=== PATIENT | female | born 2000 | race Hispanic/Latino ===

== ENCOUNTER 2022-09-17 17:11 | Emergency (ER) | payer SELFPAY ==
[~2022-09-17 17:11] MED LIST: Iopamidol 370 76% 100 ML VIAL ONE
[2022-09-17 17:55] LABS: Bilirubin Negative (Negative); Blood, Urine Small (Negative); Glucose, Urine (Dipstick) Negative (Negative); Ketone, Urine Negative (Negative); Leukocyte Large (Negative); Nitrite Negative (Negative); Protein, Urine (Dipstick) Negative (Neg-Trace); Urobilinogen 0.2 mg/dL (Less than 2)
[2022-09-17 17:57] LABS: Clarity Hazy (Clear)
[2022-09-17 18:00] LABS: Pregnancy Test - Urine (BHCG) Negative (Negative); Pregu Control Background? CLEAR/WHITE (CLR/WHITE); Pregu Control Bar Appear? YES (CONTROL BAR)
[2022-09-17] MEDS ORDERED: Ondansetron PF 4 MG/2 ML Vial ONE (18:03)
[2022-09-17] MEDS ORDERED: Sodium Chloride 0.9% 1,000 ML ONE (18:03)
[2022-09-17] MEDS ORDERED: Ketorolac Tromethamine 30 MG/ML VIAL ONE (18:04)
[2022-09-17 18:06] LABS: #Basophils 0.1 thou/uL (0.0-0.2); #Lymphocytes 1.5 thou/uL (1.20-3.40); #Monocytes 0.4 thou/uL (0.11-0.59); #Neutrophils 8.7 thou/uL (1.40-6.50); %Basophils 0.7 % (0.0-1.0); %Eosinophils 0.3 % (0.0-10.0); %Lymphocytes 13.8 % (21.0-51.0); %Monocytes 3.4 % (0.0-10.0); %Neutrophils 81.8 % (42.0-75.0); Hemoglobin 10.9 g/dL (12.0-16.0); Mean Corpuscular HGB CONC 31.1 g/dL (32.0-36.0); Mean Corpuscular Hemoglobin 26.1 pg (27.0-31.0); Mean Platelet Volume 8.4 fL (7.4-10.4); Platelet Count 284 10x3/uL (130-400); RBC Distribution Width 14.8 % (11.5-14.5); Red Blood Cell (RBC) Count 4.17 mill/uL (4.20-5.40); White Blood Cell (WBC) Count 10.7 10x3/uL (4.8-10.8)
[2022-09-17 18:16] LABS: Bacteria/HPF Rare-Few HPF (None Seen); Squamous Epithelial 0-3 HPF (0-3); WBC/HPF 21-50 HPF (0-3)
[2022-09-17 18:19] LABS: ALT (SGPT) 16 U/L (8-55); AST (SGOT) 14 U/L (5-34); Albumin 4.3 g/dL (3.5-5.0); Alkaline Phosphatase 69 U/L (40-110); Anion Gap 13 mmol/L (10-20); BUN (Urea Nitrogen) 22 mg/dL (7.0-18.7); Bilirubin, Total 0.7 mg/dL (0.2-1.2); Calc. Creatinine Clearance 0 mL/min (70-130); Calcium 9.3 mg/dL (7.8-10.44); Carbon Dioxide 22 mmol/L (22-29); Chloride 107 mmol/L (98-107); Estimated GFR 105; Globulin 3.3 g/dL (2.4-3.5); Glucose 115 mg/dL (70-105); Lipase 9 U/L (8-78); Potassium 3.6 mmol/L (3.5-5.1); Protein, Total 7.6 g/dL (6.0-8.3); Sodium 138 mmol/L (136-145)
[2022-09-17] MEDS ORDERED: Piperacillin/Tazobactam 4.5 GM VIAL ONE (20:17)
[2022-09-17] MEDS ORDERED: Sodium Chloride 0.9% 100 ML ONE (20:17)
[2022-09-17] MEDS ORDERED: Morphine 4 MG/ML VIAL ONE ×2 (20:21→21:38)
[2022-09-17 22:01] LABS: SARS-CoV-2 NAA Rapid Test Not Detected (NotDetected)
== END 2022-09-17 22:43 | disposition short-term general hospital (02) ==
LOC: NAV ERS 17:11
DX: K35.80 Unspecified acute appendicitis (principal); Z20.822 Contact with and (suspected) exposure to COVID-19
CPT/HCPCS: 74177; 80053; 81003; 81015; 81025; 83690; 85025; 87086; 96361; 96365; 96375; 96376; J1885; J2270; J2405; J2543; J3490; J7050; Q9967; U0002